=== PATIENT | female | born 1970 | race Caucasian/White ===

== ENCOUNTER 2019-04-28 07:44 | Outpatient (CLI) | payer OTHER | END 2019-04-28 23:59 | disposition home or self-care (01) | LOC: CFH 07:44 | PROVIDERS: ATTEND Family Medicine | DX: Z12.31 Encounter for screening mammogram for malignant neoplasm of breast (principal); I10 Essential (primary) hypertension; F41.8 Other specified anxiety disorders; R53.83 Other fatigue | CPT/HCPCS: 36415; 76641; 77063; 77067; 80053; 80061; 82607; 82746; 84439; 84443; 84480; 85025; 85651; 86038; 86140; 86430 ==